=== PATIENT | male | born 1945 | race Caucasian/White ===

== ENCOUNTER → 2017-11-23 | Outpatient (CLI) | payer MEDICARE ==
[~2017-11-23] MED LIST: ACET600C3 PO; ACET600C5 PO; ALL300 PO; ALLO-2; ALLO-2 PO; ASPI-1471 PO; AZEL205. NS; BACL-1 PO; BEET PO; BEET SUPPLEMENT PO; BENA20TA8; BENA20TA8 PO; CLOB30CR3 TP; DICL100G39 TOP; DILT-100 PO; FINA5TAB67; FINA5TAB67 PO; FLUT16SP19; GLUC100026 PO; HCTZ25 PO; HYDR12.556; IPRA15SP7 NS; LOR5/325 PO; MELO-150 PO; MELO-207; MULT-1097 PO; NEO EACH EAR; OXYGENHOME INH; POLYMYXIN EACH EAR; POTA20TA85; POTA20TA85 PO; POTA20TA94 PO; PRA20 PO; TAMS0.4C70; [UNRECOGNIZED DRUG - OTHER] EACH EAR; [UNRECOGNIZED DRUG - REMARK]; tumeric PO
[2017-11-23 10:54] LABS: PLATELET COUNT, AUTOMATED 185 K/uL (150-450)
== END ==
LOC: LAB 10:11
PROVIDERS: ATTEND Family Medicine
DX: E11.9 Type 2 diabetes mellitus without complications (principal); I10 Essential (primary) hypertension
CPT/HCPCS: 36415; 82040; 82247; 82310; 82374; 82435; 82565; 82947; 83036; 84075; 84132; 84155; 84295; 84450; 84460; 84520; 85025

== ENCOUNTER → 2018-03-01 | Outpatient (CLI) | payer MEDICARE ==
[~2018-03-01] MED LIST changes: +OFLO10DR3 EACH EAR
== END ==
LOC: AUD 10:00
PROVIDERS: ATTEND Otolaryngology
DX: H91.90 Unspecified hearing loss, unspecified ear (principal); Z96.22 Myringotomy tube(s) status
CPT/HCPCS: 92552; 92567

== ENCOUNTER → 2018-07-18 | Outpatient (CLI) | payer MEDICARE ==
[~2018-07-18] MED LIST changes: +BENA20TA64; +BENA20TA64 PO; -BENA20TA8; -BENA20TA8 PO; +PNEI IJ
--- NOTE | 2018-07-18 18:00 | RADIOLOGY IMAGING REPORT ---
FACILITY: [facility] PATIENT NAME: Beni Corrigan : 1945 MR: [id number] V: [id number] EXAM DATE: ORDERING PHYSICIAN: FIDE GILMORE TECHNOLOGIST: [place] [facility] [place] Beni Corrigan : 1945 Visit/Account:[id number] Date of Sevice: 07/18/2018 EXAMINATION: CT temporal bone without IV contrast HISTORY: Otosclerosis involving otic capsule bilateral. Preop cochlear implant. COMPARISON: None. TECHNIQUE: Non-IV enhanced high-resolution sub-millimeter axial scans were obtained through both tem poral bones, reformatted in the coronal and sagittal plane. Exam is optimized for bone detail and is not intended for soft tissue evaluation of the posterior fossa. The rest of the brain was not imaged. One of the following dose optimization techniques was utilized in the performance of this exam: Autom ated exposure control; adjustment of the mA and/or kV according to the patient's size; or use of an i terative reconstruction technique. Specific details can be referenced in the facility's radiology C T exam operational policy. FINDINGS: RIGHT TEMPORAL BONE: The stapes is not visualized. There is patchy opacity in the middle ear cavity deep to the tympanic membrane, and in the region of the oval window. There is patchy lucency in the bony otic capsule, at the fissula antefenestrum, and around the cochlea. There is a spongiotic plaque at the round window niche which obliterates the entrance to the round window. The pinna is normal in appearance. External auditory canal and mastoid air cells are clear. Tympani c membrane is normal. There is no erosion of the scutum or annulus. Course and configuration of the facial nerve is normal. The inner ear structures are normal in configurationno abnormality of the b jennifer internal auditory canal. There is no enlargement of the bony vestibular aqueduct. Course and co nfiguration of the jugular bulb and carotid canal are normal. LEFT TEMPORAL BONE: There is a metallic stapes prosthesis which is well-positioned with the tip at the oval window. Mall eus and incus are normal in appearance. There is patchy lucency in the bony otic capsule, at the fis sula antefenestrum, and around the cochlea. There is a spongiotic plaque at the round window niche w hich obliterates the entrance to the round window. The pinna is normal in appearance. External auditory canal and mastoid air cells are clear. Tympani c membrane is normal. There is no erosion of the scutum or annulus. Middle ear cavity is clear. Co urse and configuration of the facial nerve is normal. The inner ear structures are normal in configu ration. No abnormality of the bony internal auditory canal. There is no enlargement of the bony ves tibular aqueduct. Course and configuration of the jugular bulb and carotid canal are normal. Visualized brain/soft tissues/paranasal sinuses: Atherosclerotic calcifications of both carotid sipho ns and the vertebral arteries. Minimal mucosal thickening in the bilateral ethmoid air cells. IMPRESSION: 1. Severe bilateral fenestral and cochlear otosclerosis. 2. 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 3. Absent right stapes, and well-positioned left stapes implant. Report Dictated By: Sarah Chaudhry MD at 07/18/2018 5:45 PM Report E-Signed By: Sarah Chaudhry MD at 07/18/2018 5:57 PM WSN:[id number]
== END ==
LOC: CT 15:45
PROVIDERS: ATTEND Otolaryngology
DX: H80.23 Cochlear otosclerosis, bilateral (principal)
CPT/HCPCS: 70480

== ENCOUNTER → 2018-09-12 | Outpatient (CLI) | payer MEDICARE ==
[~2018-09-12] MED LIST changes: +FLU180SY11 IM
[2018-09-12 10:25] LABS: PLATELET COUNT, AUTOMATED 188 K/uL (150-450)
[2018-09-12 10:37] LABS: LDL CHOLESTEROL 125 mg/dl
== END ==
LOC: LAB 10:07
PROVIDERS: ATTEND Family Medicine
DX: Z12.5 Encounter for screening for malignant neoplasm of prostate (principal); E79.0 Hyperuricemia without signs of inflammatory arthritis and tophaceous disease; R73.01 Impaired fasting glucose; E78.5 Hyperlipidemia, unspecified; I10 Essential (primary) hypertension; Z86.39 Personal history of other endocrine, nutritional and metabolic disease
CPT/HCPCS: 36415; 83036; 84443; 84550; 85025; G0103; 82040; 82247; 82310; 82374; 82435; 82465; 82565; 82947; 83718; 84075; 84132; 84153; 84155; 84295; 84450; 84460; 84478; 84520

== ENCOUNTER → 2019-01-27 | Outpatient (CLI) | payer MEDICARE ==
[~2019-01-27] MED LIST changes: -MULT-1097 PO; +MULT-1540 PO
== END ==
LOC: LAB 15:07
PROVIDERS: ATTEND Family Medicine
DX: E11.9 Type 2 diabetes mellitus without complications (principal); I10 Essential (primary) hypertension
CPT/HCPCS: 36415; 82310; 82374; 82435; 82565; 82947; 83036; 84132; 84295; 84520